=== PATIENT | female | born 2000 | race Hispanic/Latino ===

== ENCOUNTER 2019-11-03 08:55 | Outpatient (CLI) | payer OTHER ==
--- NOTE | 2019-11-03 09:35 | ULT ---
Obstetrical ultrasound: 11/03/2019 COMPARISON:None available HISTORY:Evaluate anatomy TECHNIQUE: Multiplanar grayscale sonographic imaging of thegravid uterus provided FINDINGS:Cervical length is approximately 3.3 cm. There is a single intrauterine gestation demonstrat ing a vertex presentation. The placenta is located posteriorly with no evidence for previa or abruption. The kidneys, stomach, four-chamber heart view, umbilical cord insertion, bladder, and umb ilical cord appear within normal limits. The spine and the intracranial contents appear normal. nose and lips are unremarkab le. Amniotic fluid index is 13.1 cm. biometry: BPD 5.7 cm 23 weeks 3 days Head circumference 21.6 cm 23 weeks 5 days Abdominal circumference 18.8 cm 23 weeks 4 days Femur length 3.8 cm 22 weeks 2 days Average age based on ultrasound is 23 weeks 2 days. Estimated weight is 559 g +/- 82 g (61%). Estimated date of delivery is 02/28/2020. IMPRESSION:Single intrauterine gestation demonstrating no abnormality.
== END 2019-11-03 08:56 | disposition home or self-care (01) ==
LOC: BICULT 08:55
PROVIDERS: ATTEND Family Medicine
DX: Z34.82 Encounter for supervision of other normal pregnancy, second trimester (principal); Z3A.23 23 weeks gestation of pregnancy
CPT/HCPCS: 76805

== ENCOUNTER 2020-02-18 20:14 | Inpatient (IN) | payer OTHER ==
[2020-02-18 20:50] VITALS: BMI 36.0
[2020-02-18 21:12] LABS: Amnisure Internal Control QC ACCEPTABLE (ACCEPTABLE); Amnisure Test RUPTURE DETECTED (No Rupture)
[2020-02-18] MEDS ORDERED: Acetaminophen 500 MG TAB PO PRN (21:43)
[2020-02-18] MEDS ORDERED: Ondansetron PF 4 MG/2 ML Vial IVP PRN (21:43)
[2020-02-18] MEDS ORDERED: Methylergonovine 0.2 MG/ML VIAL IM PRN (21:43)
[2020-02-18] MEDS ORDERED: Lidocaine 1% (PF) 30 ML VIAL SC PRN (21:43)
[2020-02-18] MEDS ORDERED: Butorphanol Tartrate 1 MG/ML VIAL SLOW IVP PRN (21:43)
[2020-02-18] MEDS ORDERED: NS / Oxytocin 40 units/1000ml 1,000 ML IV PRN (21:43)
[2020-02-18] MEDS ORDERED: Ibuprofen 800 MG TAB PO PRN (21:43)
[2020-02-18] MEDS ORDERED: hydrALAZINE 20 MG/ML VIAL SLOW IVP PRN (21:43)
[2020-02-18] MEDS ORDERED: Promethazine HCl 25 MG/ML VIAL IM PRN (21:43)
[2020-02-18] MEDS ORDERED: Misoprostol 200 MCG TAB PR PRN (21:43)
[2020-02-18] MEDS ORDERED: Carboprost 250 MCG/ML AMP IM PRN (21:43)
--- NOTE | 2020-02-18 21:49 | PDOC.LDHP ---
Labor and Delivery H&P Chief complaint: loss of fluid HPI: 19yo @ 38.4 weeks presents for evaluation of leakage of fluid that started at 0500 this morning. She states it leaks a small amount every time she moves. She sees Dr. Oneal for care and denies problems with her current . Current gestational age (weeks): 38 (4d) Due date: 03/03/20 Dating criteria: last menstrual period, first trimester ultrasound Grav: 2 Para: 1 Current complications: none Abnormal US findings: No Past Medical History: None Current medications: pre-juan vitamins Previous surgical history: none Allergies/Adverse Reactions: Allergies Allergy/AdvReac Type Severity Reaction Status Date / Time No Known Allergies Allergy Verified 02/18/20 20:44 Social history: none - Physical Exam Vital signs reviewed and normal: yes General: NAD, resting Heart: RRR Lungs: CTAB Abdomen: NTTP Extremeties: no edema FHT: category 2 (minimal variability) - Vaginal Exam cm dilated: 2 Effacement: 50% Station: -2 - OB Labs Blood type: O RH: positive Antibody Screen: negative HIV: negative RPR: negative HEPSAg: negative GBS: negative - Assessment L&D Assessment: term rupture in membranes - Plan Plan: admit to L&D, labor augmentation if indicated -: Term , SROM 0500 02/17 - Admit to L&D - Will start augmentation of labor with pitocin. Discussed plan with Dr. Wylie attending. Justus VELÁSQUEZ PGY2
[2020-02-18] MEDS: Lactated Ringer's 1,000 ML IV SCH (21:50)
[2020-02-18 22:22] LABS: Hemoglobin 10.9 g/dL (12.0-16.0); Mean Corpuscular HGB CONC 34.6 g/dL (32.0-36.0); Mean Corpuscular Hemoglobin 30.1 pg (27.0-31.0); Mean Corpuscular Volume 87.1 fL (78.0-98.0); Mean Platelet Volume 9.1 fL (7.4-10.4); Platelet Count 234 thou/uL (130-400); RBC Distribution Width 13.3 % (11.5-14.5); Red Blood Cell (RBC) Count 3.63 mill/uL (4.20-5.40); White Blood Cell (WBC) Count 12.8 thou/uL (4.8-10.8)
[2020-02-18] MEDS: NS w/ Oxytocin 10 units 500 ML IV SCH (22:35)
[2020-02-18 22:59] LABS: HBSAg Index 0.24 S/CO (0-0.99); Hep B Surf Ag Non-Reactive S/CO (NonReactive); Syphilis Antibody Nonreactive (Nonreactive); Syphilis Antibody Index 0.02 S/CO (<1.00 Non-Reactive)
[2020-02-19 05:37] LABS: SARS-CoV-2 MS2 Positive; SARS-CoV-2 N Gene Negative; SARS-CoV-2 S Gene Negative; SARS-CoV-2 by NAA Not Detected (NotDetected); SARS-CoV-2 orf1ab Negative
--- NOTE | 2020-02-19 07:03 | PDOC.LDPN ---
Labor & Delivery Progress Note - Subjective Subjective: comfortable - Objective Vital signs reviewed and normal: yes General: NAD, resting, breathing through contractions Uterine fundus: tender to palpation SVE: per RN @ 0600 Dilation: 4 Effacement: 75% Station: -2 FHT: category 1 Soper contractions every: 3-4 min Plan: continue plan of care, labor augmentation, pitocin for augmentation -: Term , SROM 0500 02/17 - Augmentation of labor with pitocin. - Making slow, steady progress. - Continue labor management. Discussed plan with Dr. Wylie attending. Justus VELÁSQUEZ PGY2
[2020-02-19] MEDS: Lactated Ringer's 1,000 ML IV SCH ×2 (07:24→09:18)
[2020-02-19] MEDS ORDERED: DISCONTINUE ALL PREVIOUS NARCOTICS FS SCH (08:15)
[2020-02-19] MEDS ORDERED: Bupivacaine 0.5% 20 ML, fentaNYL Citrate/PF 400 MCG in Sodium Chloride 0.9% 72 ML EPIDURAL SCH (08:15)
--- NOTE | 2020-02-19 08:43 | PDOC.BPN ---
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 GBS neg
--- NOTE | 2020-02-19 09:20 | PDOC.BPN ---
- Brief Progress Note SVE: /-2 IUPC attempted twice. Continued to curl and not slide past head. left IUPC in but unsure if kinked or properly reading. Almost dilated to a six. FHT: cat 1 strip 130 baseline, mod variability, and acels present. Discussed care with Dr. Harrison, will recheck in 2-3 hours.
--- NOTE | 2020-02-19 09:45 | PDOC.BPN ---
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 Class I FHTs, irregular ctx on IUPC but per Dr Weller IUPC was not easy placement due to engaged head/position. Last cx check was 5cm.
[2020-02-19] MEDS ORDERED: Naloxone HCl 0.4 mg/ml Vial IVP PRN ×2 (10:11)
[2020-02-19] MEDS ORDERED: diphenhydrAMINE 50 MG/ML VIAL IVP PRN (10:11)
[2020-02-19] MEDS ORDERED: ePHEDrine 50 MG/ML VIAL SLOW IVP PRN (10:11)
[2020-02-19] MEDS ORDERED: Promethazine HCl 25 MG/ML VIAL IM PRN (10:11)
[2020-02-19] MEDS ORDERED: Lactated Ringer's 500 ML IV PRN (10:11)
[2020-02-19] MEDS ORDERED: Acetaminophen 325 MG TAB PO PRN (10:11)
[2020-02-19] MEDS ORDERED: Ondansetron PF 4 MG/2 ML Vial IVP PRN (10:11)
[2020-02-19] MEDS ORDERED: Communication Order-Pharmacy FS PRN (10:15)
[2020-02-19] MEDS ORDERED: Fentanyl 4 mcg/Bupivacaine 0.1% Cassette 100 ML EPIDURAL SCH (10:15)
--- NOTE | 2020-02-19 11:24 | PDOC.LDPN ---
Labor & Delivery Progress Note - Subjective Subjective: comfortable - Objective Vital signs reviewed and normal: yes General: NAD Uterine fundus: tender to palpation FHT: category 1, category 2 (some mild/brief variables noted at times, but moderate variability) [place] contractions every: every 3 min Plan: continue plan of care
[2020-02-19] MEDS: NS w/ Oxytocin 10 units 500 ML IV SCH (12:22)
[2020-02-19] MEDS ORDERED: Lidocaine 1% (PF) 30 ML VIAL ONE (13:34)
[2020-02-19] MEDS ORDERED: NS / Oxytocin 40 units/1000ml 1,000 ML ONE (13:35)
[2020-02-19] MEDS ORDERED: Lanolin Ointment 7 GM TUBE TOP PRN ×2 (14:27→23:25)
[2020-02-19] MEDS ORDERED: Bisacodyl 10 MG SUPP PR PRN (14:27)
[2020-02-19] MEDS ORDERED: Varicella virus, LIVE 0.5 ML VIAL SC ONE (14:27)
[2020-02-19] MEDS ORDERED: Measles/Mumps/Rubella 10 MCG/0.5 ML VIAL SC ONE (14:27)
[2020-02-19] MEDS ORDERED: Benzocaine-Menthol 82.5 ML CAN TOP PRN (14:27)
[2020-02-19] MEDS ORDERED: Preparation H Ointment 28 GM TUBE PR PRN (14:27)
[2020-02-19] MEDS ORDERED: diphenhydrAMINE 25 MG CAP PO PRN (14:27)
[2020-02-19] MEDS ORDERED: Milk Of Magnesia 30 ML UDCUP PO PRN (14:27)
[2020-02-19] MEDS ORDERED: hydrALAZINE 20 MG/ML VIAL SLOW IVP PRN (14:27)
[2020-02-19] MEDS ORDERED: Adacel (T-DAP) 0.5 ML SYRINGE IM ONE (14:27)
[2020-02-19] MEDS ORDERED: NS / Oxytocin 40 units/1000ml 1,000 ML IV SCH (14:30)
--- NOTE | 2020-02-19 14:37 | PDOC.OPDEL ---
OB Operative/Delivery Note Delivery Dr/Surgeon: Raciel Weller (Resident) Assist: Robert Douglass (M3); Harrison: Attending Pre-Delivery Diagnosis: active labor Procedure/Post Delivery Dx: spontaneous vaginal delivery (Baby vigorous male at 1416. Nursery present for delivery.) Anesthesia: epidural - Findings A Sex: male - 1 min: 8 (Verbal, not final) - 5 min: 9 (Verbal, not final) - Additional Findings/Plan Placenta delivered: spontaneous (almaraz at 1419; 3 VC.) Repaired Obstetrical Laceration: none Estimated blood loss: 300-400ml at max EBL; QBL pending Compilations/Other Findings: Vigorours male. Place at 1419...spont. 3VC No complications Initial MOR atony RX with Ut massage and I/O cath for about 100ml urine. Cytotec 800 mcg ME given x1 as they were brought to the room and opened, given to prevent recurrence of blee. Total EBL at max is 300-400 (suspect QBL less) Nursery present for delivery Dr Weller delivery in process as I was entering the room as I was in L&D triage [facility] another patient and patient proceeded quickly to delivery. Present and participated with/for procedure. Post delivery plan: routine recovery
[2020-02-19] MEDS ORDERED: Ferrous Sulfate 325 MG TAB PO SCH (17:00)
[2020-02-19] MEDS ORDERED: HYDROcodone/Acetaminophen 5/325 mg Tablet PO PRN (20:50)
[2020-02-19] MEDS ORDERED: Docusate Calcium (SURFAK) 240 MG CAP PO SCH (21:00)
[2020-02-19] MEDS: Ibuprofen 600 MG TAB PO PRN (21:38)
[2020-02-19] MEDS: Docusate 100 MG CAP PO SCH (21:38)
[2020-02-19] MEDS ORDERED: Ibuprofen 800 MG TAB PO SCH (22:00)
[2020-02-20] MEDS: Docusate 100 MG CAP PO SCH (08:13)
[2020-02-20] MEDS: Ibuprofen 600 MG TAB PO PRN ×2 (08:13→14:05)
[2020-02-20] MEDS ORDERED: Prenatal Vitamin 1 TAB PO SCH (09:00)
[2020-02-20 12:13] VITALS: BP 101/54; TEMP 97.8
== END 2020-02-20 17:40 | disposition home or self-care (01) | DRG 807 ==
LOC: L&D/OP 20:14 → L&D 21:44 → 3SW 02-19 17:24
PROVIDERS: ADMIT Family Medicine; ATTEND Family Medicine
PROC: 10E0XZZ Delivery of Products of Conception, External Approach (ICD-10-PCS; principal; 2020-02-19)
PROC: 10H07YZ Insertion of Other Device into Products of Conception, Via Natural or Artificial Opening (ICD-10-PCS; 2020-02-19)
DX: O80 Encounter for full-term uncomplicated delivery (principal); Z37.0 Single live birth; Z3A.38 38 weeks gestation of pregnancy; Z20.828 Contact with and (suspected) exposure to other viral communicable diseases
CPT/HCPCS: 36415; 51702; 84112; 85027; 86780; 86850; 86900; 86901; 87340; 87635; 99285; J2405; J2590; J3010; J3490; U0003